=== PATIENT | male | born 1940 | race Caucasian/White ===

== ENCOUNTER 2019-09-27 22:58 | Inpatient (IN) | payer MEDICARE ==
[~2019-09-27] VITALS: Ht 180.3 cm; Wt 90.8 kg
[2019-09-28] MEDS ORDERED: FINA5 PO (00:32)
[2019-09-28] MEDS ORDERED: DIPH25 PO (00:32)
[2019-09-28] MEDS ORDERED: GABA400 PO ×2 (00:33)
[2019-09-28] MEDS ORDERED: MELA3 PO (00:34)
[2019-09-28] MEDS ORDERED: SENNA LAXATIVE8.6 MG PO (00:34)
[2019-09-28] MEDS ORDERED: SIMBRINZA 1%-0.28 ML BOTHEYES (00:34)
[2019-09-28] MEDS ORDERED: CARBIDOPA-LEVO1 EA19 PO (00:35)
[2019-09-28] MEDS ORDERED: Cymbalta20 MG PT (01:34)
[2019-09-28] MEDS ORDERED: WARF7.5 PO (01:35)
[2019-09-28] MEDS ORDERED: WARF5 PO (01:35)
[2019-09-28] MEDS ORDERED: Prozac40 MG PO (01:36)
[2019-09-28] MEDS ORDERED: METO50ER PO (01:36)
[2019-09-28] MEDS ORDERED: LOSA50 PO (01:36)
[2019-09-28] MEDS ORDERED: TAMS.4ER PO (01:37)
[2019-09-28] MEDS ORDERED: Lovastatin20 MG PO (01:37)
[2019-09-28] MEDS ORDERED: ASPI81CH PO (01:37)
[2019-09-28] MEDS ORDERED: MEMA10 PO (01:37)
[2019-09-28] MEDS ORDERED: BASAGLAR K100 UNIT/1 SC (01:38)
[2019-09-28] MEDS ORDERED: GLIP5 PO (01:38)
[2019-09-28 05:06] LABS: BASOPHILS ABSOLUTE AUTO 0.01 K/mm3 (0.00-0.23); BASOPHILS PERCENT AUTO 0 % (0-2); EOSINOPHILS ABSOLUTE AUTO 0.01 K/mm3 (0.00-0.68); EOSINOPHILS PERCENT AUTO 0 % (0-6); Hematocrit 43.6 % (37.0-53.0); Hemoglobin 14.2 g/dL (13.5-17.5); IMMATURE GRAN ABSOLUTE AUTO 0.04 K/mm3 (0.00-0.10); IMMATURE GRAN PERCENT AUTO 1 % (0-1); LYMPHOCYTES PERCENT AUTO 18 % (21-46); MONOCYTES ABSOLUTE AUTO 0.65 K/mm3 (0.16-1.47); MONOCYTES PERCENT AUTO 9 % (4-13); Mean Corpuscular HGB 27.6 pg (26.0-34.0); Mean Corpuscular HGB Conc 32.6 g/dL (31.5-36.5); Mean Corpuscular Volume 85 fL (80-100); Mean Platelet Volume 9.3 fL (9.1-12.4); NEUTROPHILS ABSOLUTE AUTO 5.16 K/mm3 (1.96-9.15); NEUTROPHILS PERCENT AUTO 72 % (41-73); Platelet Count 160 K/mm3 (150-400); RDW Coefficient Variation 14.4 % (11.7-14.2); RDW Standard Deviation 43.6 fL (35.1-46.3); Red Blood Cell Count 5.15 M/mm3 (4.30-5.90); White Blood Cell Count 7.17 K/mm3 (4.00-11.30)
[2019-09-28 05:47] LABS: Alanine Aminotransfer (ALT/SGP 15 U/L (12-78); Albumin/Globulin Ratio 0.7 (0.8-1.8); Alk Phos 68 U/L (50-136); Anion Gap 9 mmol/L (6-16); Aspartate Aminotrans (AST/SGOT 20 U/L (12-37); Blood Urea Nitrogen 22 mg/dL (8-24); Bun/Creatinine Ratio 22.2 (12.0-20.0); CO2, Blood 25 mmol/L (21-32); Calcium, Blood 8.5 mg/dL (8.5-10.1); Chloride, Blood 102 mmol/L (98-108); Creatinine, Blood 0.99 mg/dL (0.60-1.20); Globulin, Blood 4.3 g/dL (2.2-4.0); Glomerular Filtration Rate >60 (60-); Glucose, Blood 152 mg/dL (70-99); Potassium, Blood 3.5 mmol/L (3.5-5.5); Sodium, Blood 136 mmol/L (136-145); Total Protein, Blood 7.3 g/dL (6.4-8.2)
--- NOTE | 2019-09-28 06:26 | NUR ---
09/28/19 0600 PT HAS BEEN HAVING HIGH HEART RATE ON AND OFF THIS SHIFT. SEE LIST OF VITALS. PT ASYMPTOMATIC. DISCUSSED EVENTS WITH INVESTMENT TRADER, SAIMA, AND EKG DONE. RN INFORMED ON-CALL MD ABOUT EVENTS AND HEART MONITOR ORDERED. ALSO MD ORDERED ONE TIME DOSE OF LOPRESSOR. SEE MAR FOR MEDS GIVEN. PT HAS BEEN NPO SINCE MIDNIGHT. NV STATUS TO BOTH LEGS/FET GOOD. PT WAS INCONTINENT ONCE THIS SHIFT. IV FLUIDS RUNNING AT 100ML/HOUR. PT TO HAVE SURGERY LATER TODAY.
[2019-09-28 07:10] LABS: International Normalized Ratio 1.82; Prothrombin Time Results 18.8 Sec (9.7-11.5)
--- NOTE | 2019-09-28 07:10 | NUR ---
09/28/19 0615 PT CONFUSED BUT PLEASANT. BED ALARM SOUNDS WHEN HE TRYS TO GET UP. ATTEMPTED TO VOID TWICE THIS SHIFT BUT UNABLE. ABDOMEN SOFT. IV FLUIDS RUNNING AT 75ML/HOUR. ONLY WOULD TAKE SIPS OF WATER THIS SHIFT. VITALS STABLE. PT SCHEDULED FOR SEVERAL TEST TODAY.
--- NOTE | 2019-09-28 07:59 | NUR ---
Bladder Scan was done and 495ml was found. RN was notified.
[2019-09-28 09:55] LABS: Source, Urine Clean Catch
--- NOTE | 2019-09-28 10:12 | NUR ---
UA was collected at 0944 and was sent to the lab. RN was notofed that the specimen was collected.
[2019-09-28 11:14] LABS: Appearance, Urine Hazy (Clear); Bilirubin, Urine Neg (Neg); Blood, Urine 3+ (Neg); Color, Urine Yellow (P-Yellow); Glucose Qualitative, Urine 1+ (Neg); Ketones, Urine 2+ (Neg); Leukocyte Esterase, Urine 2+ (Neg); Nitrite, Urine Neg (Neg); Protein, Urine 1+ (Neg); Specific Gravity, Urine 1.025 (1.003-1.022); Urobilinogen, Urine 1+ (Normal)
[2019-09-28 11:16] LABS: Bacteria Many /hpf; Squamous Epithelial Cells Not Seen /hpf (Few); White Blood Cells, Urine TNTC /hpf (0-5)
--- NOTE | 2019-09-28 14:53 | NUR ---
IN AND OUT 14 FR COUDE OBTAINING 800 ML
--- NOTE | 2019-09-28 16:32 | NUR ---
ADMITTED LAST NIGHT FOR FTT. SINCE ABOUT FRIDAY STOPPED TAKING MEDS AND FOOD. OVER ONE YEAR HX OF DIFFICULTY URINATING WITH HAVING A "PROCEDURE WITH SCOPE INTO BLADDER". CATH X ONCE WITH 800 ML OUT. HAD; ECHO, O.T EVAL, MRI OF THE BRAIN. AWARE OF RESULTS. HX PARKINSONS AND NEEDS PLENTY OF CUES. ONE PERSON ASSIST. DENIES ANY PAIN OR SOB. UNLABORED RESPIRATIONS. TELE ON AND PER TECH SR AT64. TM
--- NOTE | 2019-09-28 21:02 | NUR ---
PTT DRAWN AT 2100.
--- NOTE | 2019-09-28 22:23 | NUR ---
PTT 70.2. PER PHARMACY ORDER, NO CHANGE IN DOSE OF 15 UNITS/KG AND 27ML/HR. NEXT PTT IS AT 0300
[2019-09-29 03:00] LABS: BASOPHILS ABSOLUTE AUTO 0.02 K/mm3 (0.00-0.23); BASOPHILS PERCENT AUTO 0 % (0-2); EOSINOPHILS ABSOLUTE AUTO 0.03 K/mm3 (0.00-0.68); EOSINOPHILS PERCENT AUTO 1 % (0-6); Hematocrit 39.5 % (37.0-53.0); Hemoglobin 13.1 g/dL (13.5-17.5); IMMATURE GRAN ABSOLUTE AUTO 0.04 K/mm3 (0.00-0.10); IMMATURE GRAN PERCENT AUTO 1 % (0-1); LYMPHOCYTES ABSOLUTE AUTO 1.05 K/mm3 (0.84-5.20); LYMPHOCYTES PERCENT AUTO 17 % (21-46); MONOCYTES ABSOLUTE AUTO 0.57 K/mm3 (0.16-1.47); MONOCYTES PERCENT AUTO 9 % (4-13); Mean Corpuscular HGB 28.2 pg (26.0-34.0); Mean Corpuscular HGB Conc 33.2 g/dL (31.5-36.5); Mean Corpuscular Volume 85 fL (80-100); Mean Platelet Volume 9.4 fL (9.1-12.4); NEUTROPHILS ABSOLUTE AUTO 4.56 K/mm3 (1.96-9.15); NEUTROPHILS PERCENT AUTO 73 % (41-73); Platelet Count 154 K/mm3 (150-400); RDW Coefficient Variation 14.7 % (11.7-14.2); RDW Standard Deviation 44.6 fL (35.1-46.3); Red Blood Cell Count 4.65 M/mm3 (4.30-5.90); White Blood Cell Count 6.27 K/mm3 (4.00-11.30)
[2019-09-29 03:15] LABS: Albumin, Blood 2.6 g/dL (3.4-5.0); Anion Gap 3 mmol/L (6-16); Blood Urea Nitrogen 28 mg/dL (8-24); Bun/Creatinine Ratio 30.3 (12.0-20.0); CO2, Blood 28 mmol/L (21-32); Calcium, Blood 7.9 mg/dL (8.5-10.1); Chloride, Blood 105 mmol/L (98-108); Creatinine, Blood 0.93 mg/dL (0.60-1.20); Glomerular Filtration Rate >60 (60-); Glucose, Blood 258 mg/dL (70-99); International Normalized Ratio 1.92; Prothrombin Time Results 19.8 Sec (9.7-11.5); Sodium, Blood 136 mmol/L (136-145)
--- NOTE | 2019-09-29 07:51 | NUR ---
ALERT TO SELF AND PLACE. VERY PLEASANT. NO VOID OVERNIGHT. BLADDER SCANNED FOR >380ML AT AROUND 0600. DAY RN INFORMED.. NO COMPLAINTS OF PAIN OR SOB. STRONG ONE ASSIST TO BEDSIDE COMMODE. TREMULOUSNESS NOTED ALL EXTREMITIES.
--- NOTE | 2019-09-29 17:47 | NUR ---
ALERT. ORIENTED. COOPERATIVE. PLEASANT. VERY TALKATIVE TODAY. DENIES ANY PAIN. POSSIBLE D'C TO SNF FOR REHAB. ONE TO 2 PERSON ASSIST WHEN UP WITH CUES. NO ACUTE CHANGES. UNLABORED RESPIRATIONS. HAS USED URINAL MULTIPLE TIMES TODAY WITH SUCCESS. WCTM
[2019-09-30 03:21] LABS: Hematocrit 41.5 % (37.0-53.0); Hemoglobin 13.7 g/dL (13.5-17.5)
[2019-09-30 03:37] LABS: International Normalized Ratio 1.6; Prothrombin Time Results 16.7 Sec (9.7-11.5)
--- NOTE | 2019-09-30 03:54 | NUR ---
bladder scan of 632. nuñez ordered by dr. perdomo.
--- NOTE | 2019-09-30 05:02 | NUR ---
MACHINE SHOP LEAD MAN SUMMARY PT A/O X4 WITH FORGETFULNESS. SLEPT WELL TONIGHT. CAMPBELL PLACED FOR URINARY RETENTION. DRAINING DARK URINE. PT TOLERATED WELL. PT GIVEN HYDRALAZINE FOR HYPERTENTION. BP WAS RE-ASSESSED AND CAME DOWN TO 138/77. DENIES PAIN, SOB, NAUSEA. PLEASANT AND COOPERATIVE.
--- NOTE | 2019-09-30 18:30 | NUR ---
PT STARTED SHIFT VERY CONFUSED. STATING HE ARRIVED AT [facility] YESTERDAY, BUT TODAY TWO PEOPLE TRIED KIDNAP HIM ( THE AIDS) AND HE WAS AT HIS ORGANIZATION. PT WAS NOT TRUSTING OF THIS WRITTER TO TAKE HIS MORNING MEDS OR INSULIN. PT EVEN TALKED TO AND DID NOT BELIEVE HER ON THE PHONE. STATED SHE WAS HEADED IN SO MEDS WHERE HELD UNTIL HER ARRIVAL. ONCE ARRIVED SHE WAS ABLE TO CONVINCE HIM TO TAKE MEDS AND HE IMPROVED THROUGH THE DAY TO THE POINT HE REMEMBERED HOW CONFUSED HE WAS AT THE START OF THE DAY. THE PT NOW IS TRUSTING AND COOPERATING WITH HIS CARE. PT HAS CAMPBELL IN PLACE AND IT CONTINUE TO HAVE OUTPUT. WILL CONTINUE TO MONITOR.
--- NOTE | 2019-10-01 00:12 | NUR ---
PT HR HAS GONE DOWN TO 48 BPM FOR A FEW SECONDS AT BEGINNING OF MY SHIFT AND CAME BACK UP TO THE 60'S PER CHAIR CAR ATTENDANT. PT ASYMPTOMATIC AND LAYING IN BED AND WATCHING TV. 0010 HR IN THE HIGH 50'S LOW 60'S. CURRENTLY ASLEEP. TACTICAL DEBRIEFER OFFICER NOTIFIED OF BRADYCARDIA. WILL CONTINUE TO MONITOR.
--- NOTE | 2019-10-01 04:33 | NUR ---
car shifter summary pt a/o x4. pleasant and cooperative. pt had some confusion during am shift yesterday. has been on cont heparin drip. i asked pt about it when i was passing meds [employer] on my shift to which pt stated he remembered it. pt stated he thought he might had a "stroke" and thought that was what might have caused of the confusion state in the am. pt did not bring this up previously to anyone during the am shift. PERRLA, tongue in midline, no slurred speech or facial drooping, balance sheet analyst equal in strength. hospitalist lisa notified. no new orders. denies pain, nausea, sob. hydralazine given once for htn.
[2019-10-01 05:40] LABS: International Normalized Ratio 1.93; Prothrombin Time Results 19.9 Sec (9.7-11.5)
[2019-10-01 12:37] LABS: Mean Platelet Volume 9.8 fL (9.1-12.4); Platelet Count 208 K/mm3 (150-400)
--- NOTE | 2019-10-01 18:07 | NUR ---
SHIFT SUMMARY: NO ACUTE EVENTS TODAY. A&O X 3, SLIGHTLY FLAT AFFECT BUT IN GOOD SPIRITS. ADAM VISITED FOR SEVERAL HOURS TODAY. C/O R SHOULDER AND NECK PAIN; MEDICATED WITH TYLENOL WITH GOOD EFFECT, NAPPED. WAS UP IN CHAIR FOR ALL MEALS. HR 80'S, ATRIAL FIB. HEPARIN GTT INFUSING AT 13.5 UNITS/KG/MIN OR 24.3 ML/HR; LAST PTT 74.2, NEXT ONE TO BE DRAWN AT 2000. STARTED ON COUMADIN TONIGHT. PLAN IS POSSIBLE D/C TO [facility] TOMORROW.
[2019-10-02 03:36] LABS: BASOPHILS ABSOLUTE AUTO 0.02 K/mm3 (0.00-0.23); BASOPHILS PERCENT AUTO 0 % (0-2); EOSINOPHILS ABSOLUTE AUTO 0.09 K/mm3 (0.00-0.68); EOSINOPHILS PERCENT AUTO 1 % (0-6); Hematocrit 36.5 % (37.0-53.0); Hemoglobin 12.4 g/dL (13.5-17.5); IMMATURE GRAN ABSOLUTE AUTO 0.05 K/mm3 (0.00-0.10); IMMATURE GRAN PERCENT AUTO 1 % (0-1); LYMPHOCYTES ABSOLUTE AUTO 1.11 K/mm3 (0.84-5.20); LYMPHOCYTES PERCENT AUTO 17 % (21-46); MONOCYTES ABSOLUTE AUTO 0.56 K/mm3 (0.16-1.47); MONOCYTES PERCENT AUTO 8 % (4-13); Mean Corpuscular HGB 28.1 pg (26.0-34.0); Mean Corpuscular Volume 83 fL (80-100); Mean Platelet Volume 9.4 fL (9.1-12.4); NEUTROPHILS ABSOLUTE AUTO 4.91 K/mm3 (1.96-9.15); NEUTROPHILS PERCENT AUTO 73 % (41-73); Platelet Count 176 K/mm3 (150-400); RDW Coefficient Variation 14.5 % (11.7-14.2); RDW Standard Deviation 43.4 fL (35.1-46.3); Red Blood Cell Count 4.41 M/mm3 (4.30-5.90); White Blood Cell Count 6.74 K/mm3 (4.00-11.30)
[2019-10-02 03:59] LABS: Alanine Aminotransfer (ALT/SGP 11 U/L (12-78); Albumin, Blood 2.6 g/dL (3.4-5.0); Albumin/Globulin Ratio 0.7 (0.8-1.8); Alk Phos 67 U/L (50-136); Anion Gap 7 mmol/L (6-16); Aspartate Aminotrans (AST/SGOT 18 U/L (12-37); Bilirubin, Total 0.5 mg/dL (0.1-1.0); Blood Urea Nitrogen 25 mg/dL (8-24); Bun/Creatinine Ratio 24.5 (12.0-20.0); CO2, Blood 28 mmol/L (21-32); Calcium, Blood 8.4 mg/dL (8.5-10.1); Chloride, Blood 98 mmol/L (98-108); Creatinine, Blood 1.02 mg/dL (0.60-1.20); Globulin, Blood 3.9 g/dL (2.2-4.0); Glomerular Filtration Rate >60 (60-); Glucose, Blood 180 mg/dL (70-99); Magnesium, Blood 1.6 mg/dL (1.6-2.4); Potassium, Blood 3.8 mmol/L (3.5-5.5); Sodium, Blood 133 mmol/L (136-145); Total Protein, Blood 6.5 g/dL (6.4-8.2)
--- NOTE | 2019-10-02 04:03 | NUR ---
SHIFT SUMMARY ASSUMED CARE OF PT AT 1900. PT IS A/OX3, DENIES N/T IN EXTREMTIES AT THIS TIME. PT HAS DICFFICULTY SWOLLOWING AND TAKES HIS PILLS CRUSHED WITH PUDDING BEUCASE HE DOESN'T LIKE APPLE SAUCE. HEART SOUNDS REGULAR, TELE SHOWS SECOND DEGREE TYPE 1 HEART BLOCK @ 56, DENIES CP. LUNG SOUNDS HAVE CRACKLES IN THE R LUNG BASE AND DIMINISHED T/O, DENIES SOB. CATHETER DRAINING DARK VIBHA URINE. PT SKIN IS DRY AND FLAKY, SLIGHT REDNESS ON BOTTOM. HEPRIN RUNNING T/O THE NIGHT, NO DOSAGE CHANGE. NO ACUTE EVENTS DURING THE NIGHT. THE PT HAD A HARD TIME SLEEPING LAST NIGHT. DOCTORS NOTE STATED POSSIBLE DISCHARGE TO [facility] THIS AM. CALL LIGHT IN REACH, BED IN LOWEST POSTION, WILL CONTINUE TO MONITOR UNTIL DAYSHIFT NURSE ARRIVES.
[2019-10-02 04:15] LABS: International Normalized Ratio 2.22; Prothrombin Time Results 22.7 Sec (9.7-11.5)
--- NOTE | 2019-10-02 18:11 | NUR ---
SHIFT SUMMARY PT AX3 THIS SHIFT. PT SLIGHTLY CONFUSED THIS AM WITH IMPROVEMENT THROUGHOUT THE SHIFT. PT'S IN THE ROOM MUCH OF THIS SHIFT. PT'S MENTATION IMPROVED WITH 'S COMPANY. PT UP IN CHAIR FOR BREAKFAST THEN BACK IN BED THROUGH THE REST OF THE SHIFT. CAMPBELL CATHETER DC'D THIS SHIFT. PT URINATED ~10 ML APPROXIMATELY 2 HOURS LATER. PT SITTING UP IN BED EATING DINNER.
--- NOTE | 2019-10-03 04:26 | NUR ---
SHIFT SUMMARY ASSUMED CARE OF PT AT 1900. PT IS A/OX3, DENIES N/T IN EXTREMITES. HEART SOUNDS REGULAR, LUNG SOUNDS DIMINISHED WITH CRACKELS IN THE R LOWER LOBE, DENIES SOB AND CP AT THIS THIME. PT URINE ATED 500CC THIS SHIFT BUT CONTINUED TO HAVE FREQUENCY, WHEN BLADDER SCANNED, PT HAD 991 IN BLADDER, HOSPITALIST NOTIFIED AND ORDERED CATHETER TO BE REPLACED. OVER 1400CC OF URINE DRAINED FROM CATHETER T/O THE SHIFT. PT HAS BEEN AFEBRILE T/O THE SHIFT. CALL LIGHT IN REACH, BED IN LOWEST POSTION, WILL CONTINUE TO MONITOR UNTIL DAYSHIFT NURSE ARRIVES.
[2019-10-03 05:47] LABS: BASOPHILS ABSOLUTE AUTO 0.02 K/mm3 (0.00-0.23); BASOPHILS PERCENT AUTO 0 % (0-2); EOSINOPHILS ABSOLUTE AUTO 0.04 K/mm3 (0.00-0.68); EOSINOPHILS PERCENT AUTO 1 % (0-6); IMMATURE GRAN ABSOLUTE AUTO 0.05 K/mm3 (0.00-0.10); IMMATURE GRAN PERCENT AUTO 1 % (0-1); LYMPHOCYTES ABSOLUTE AUTO 0.91 K/mm3 (0.84-5.20); LYMPHOCYTES PERCENT AUTO 12 % (21-46); MONOCYTES ABSOLUTE AUTO 0.71 K/mm3 (0.16-1.47); MONOCYTES PERCENT AUTO 10 % (4-13); Mean Corpuscular HGB 27.7 pg (26.0-34.0); Mean Corpuscular HGB Conc 32.6 g/dL (31.5-36.5); Mean Corpuscular Volume 85 fL (80-100); Mean Platelet Volume 9.3 fL (9.1-12.4); NEUTROPHILS PERCENT AUTO 76 % (41-73); Platelet Count 198 K/mm3 (150-400); RDW Coefficient Variation 14.6 % (11.7-14.2); RDW Standard Deviation 44.5 fL (35.1-46.3); Red Blood Cell Count 5.05 M/mm3 (4.30-5.90); White Blood Cell Count 7.33 K/mm3 (4.00-11.30)
[2019-10-03 06:00] LABS: International Normalized Ratio 2.86; Prothrombin Time Results 28.8 Sec (9.7-11.5)
[2019-10-03 06:11] LABS: Anion Gap 6 mmol/L (6-16); Blood Urea Nitrogen 21 mg/dL (8-24); Bun/Creatinine Ratio 19.4 (12.0-20.0); CO2, Blood 31 mmol/L (21-32); Calcium, Blood 9.2 mg/dL (8.5-10.1); Chloride, Blood 97 mmol/L (98-108); Creatinine, Blood 1.08 mg/dL (0.60-1.20); Glomerular Filtration Rate >60 (60-); Glucose, Blood 217 mg/dL (70-99); Potassium, Blood 4.2 mmol/L (3.5-5.5); Sodium, Blood 134 mmol/L (136-145)
--- NOTE | 2019-10-03 17:09 | NUR ---
SHIFT SUMMARY PT ALERT AND ORIENTED THROUGH MOST OF THIS SHIFT. IN THE ROOM LATE MORNING AND EARLY AFTERNOON. PT NAPPED EARLY AFTERNOON, WASN'T ROUSABLE TO VERBAL STIMULI, GENTAL SHAKE. MODERATE STERNAL RUB NEEDED TO ROUSE PT. PT CONFUSED UPON WAKING. PT RIORIENTED IN APPROXIMATELY 5 MINUTES AND ANSWERED QUESTIONS APPRORPIATELY AT THIS TIME. PT SITTING UP IN BED WATCHING TELEVISION THROUGH THE REST OF THIS SHIFT. PT CURRENTLY AWAITING DINNER.
--- NOTE | 2019-10-04 04:25 | NUR ---
SHIFT SUMMARY ASSUMED CARE OF PT AT 1900. PT IS A/OX3, DENIES N/T IN EXTREMITES. HEART SOUNDS REGULAR, LUNG SOUNDS DIMINISHED WITH CRACKLES IN THE R LUNG, DENIES SOB/CP. PT WAS CAUGHT EXITING THE BED, PT STATED THAT HE WAS UNCOMFORTABLE AND THATS WHY HE WAS GETTING UP, PT GO UP ON THE OPPOSITE SIDE OF HIS CATHETER AND NOT THERE IS SOME RED TINGED URINE IN THE CATHETER. PT HAS MEPILEX ON BOTTOM FOR REDNESS. PT WAS ABLE TO SLEEP AFTER THIS AT AROUND 0200. CALL LIGHT IN REACH, BED IN LOWEST POSTION, WILL CONTINUE TO MONITOR UNTIL DAYSHIFT NURSE ARRIVES.
[2019-10-04 05:06] LABS: BASOPHILS ABSOLUTE AUTO 0.03 K/mm3 (0.00-0.23); BASOPHILS PERCENT AUTO 0 % (0-2); EOSINOPHILS ABSOLUTE AUTO 0.09 K/mm3 (0.00-0.68); EOSINOPHILS PERCENT AUTO 1 % (0-6); Hematocrit 40.9 % (37.0-53.0); Hemoglobin 13.2 g/dL (13.5-17.5); IMMATURE GRAN ABSOLUTE AUTO 0.04 K/mm3 (0.00-0.10); IMMATURE GRAN PERCENT AUTO 1 % (0-1); LYMPHOCYTES PERCENT AUTO 18 % (21-46); MONOCYTES ABSOLUTE AUTO 0.64 K/mm3 (0.16-1.47); MONOCYTES PERCENT AUTO 8 % (4-13); Mean Corpuscular HGB 27.5 pg (26.0-34.0); Mean Corpuscular HGB Conc 32.3 g/dL (31.5-36.5); Mean Corpuscular Volume 85 fL (80-100); Mean Platelet Volume 9.5 fL (9.1-12.4); NEUTROPHILS ABSOLUTE AUTO 5.43 K/mm3 (1.96-9.15); NEUTROPHILS PERCENT AUTO 71 % (41-73); Platelet Count 188 K/mm3 (150-400); RDW Coefficient Variation 14.5 % (11.7-14.2); RDW Standard Deviation 44.3 fL (35.1-46.3); White Blood Cell Count 7.63 K/mm3 (4.00-11.30)
[2019-10-04 05:23] LABS: International Normalized Ratio 3.54; Prothrombin Time Results 35.3 Sec (9.7-11.5)
[2019-10-04 05:25] LABS: Anion Gap 4 mmol/L (6-16); Blood Urea Nitrogen 25 mg/dL (8-24); Bun/Creatinine Ratio 26.3 (12.0-20.0); CO2, Blood 30 mmol/L (21-32); Calcium, Blood 8.6 mg/dL (8.5-10.1); Chloride, Blood 101 mmol/L (98-108); Creatinine, Blood 0.95 mg/dL (0.60-1.20); Glomerular Filtration Rate >60 (60-); Glucose, Blood 241 mg/dL (70-99); Potassium, Blood 4.1 mmol/L (3.5-5.5); Sodium, Blood 135 mmol/L (136-145)
--- NOTE | 2019-10-04 11:30 | NUR ---
PROVIDER NOTIFIED LORENZO RAMIREZ NOTIFED OF [facility] BEING 374, OREDER PLACED FOR 10UNITS OF HUMALIN (SEE EMAR).
[2019-10-04] MEDS ORDERED: MIRT30ST PO (11:56)
[2019-10-04] MEDS ORDERED: NITR100CA PO (11:57)
--- NOTE | 2019-10-04 14:39 | NUR ---
TRANSFER NOTE/DISCHARGE PT A&O X3, PT D/C ON RA. PT TRANSFERED TO [facility]. PT'S AT BED SIDE AND PACKED PT BELONGINGS. SL REMOVED SITE WNL. PT TRANSPORTED VIA W/C WITH [facility]. [facility]Y CALLED TO [facility].
== END 2019-10-04 12:32 | DRG 690 ==
LOC: ER 22:58 → MEDS 23:00
PROVIDERS: Family Medicine; Internal Medicine; Pharmacist; ADMIT Internal Medicine
DX: N39.0 Urinary tract infection, site not specified (principal); R47.01 Aphasia; B95.2 Enterococcus as the cause of diseases classified elsewhere; E86.0 Dehydration; R62.7 Adult failure to thrive; G20 Parkinson's disease; I10 Essential (primary) hypertension; H60.60 Unspecified chronic otitis externa, unspecified ear; E78.5 Hyperlipidemia, unspecified; K21.9 Gastro-esophageal reflux disease without esophagitis; I48.91 Unspecified atrial fibrillation; E11.40 Type 2 diabetes mellitus with diabetic neuropathy, unspecified; R31.9 Hematuria, unspecified; F32.9 Major depressive disorder, single episode, unspecified; N40.1 Benign prostatic hyperplasia with lower urinary tract symptoms; R33.8 Other retention of urine; Z79.899 Other long term (current) drug therapy; Z86.73 Personal history of transient ischemic attack (TIA), and cerebral infarction without residual deficits; Z85.9 Personal history of malignant neoplasm, unspecified; Z87.891 Personal history of nicotine dependence; Z95.2 Presence of prosthetic heart valve
CPT/HCPCS: 36415; 70551; 71045; 80048; 80053; 80069; 81001; 82947; 83735; 85014; 85018; 85025; 85049; 85610; 85730; 87077; 87086; 87186; 92526; 92610; 93005; 93010; 93306; 97110; 97162; 97166; 97530; 97535; 99284; A9270; A9270-GY; G0103; J0360; J0696; J1644; J1815; J3370; J7030; J7050